=== PATIENT | male | born 1990 | race Caucasian/White ===

== ENCOUNTER 2018-07-30 11:43 | Emergency (ER) | payer OTHER ==
[2018-07-30 11:49] VITALS: BP 110/71; PULSE 85; TEMP 98.2; BMI 26.6
--- NOTE | 2018-07-30 11:54 | PDOC ---
History of Present Illness - General Chief Complaint: Sore Throat Stated Complaint: BUMP ON NECK Time Seen by Provider: 07/30/18 11:52 History Source: Patient Exam Limitations: No Limitations - History of Present Illness Initial Comments: 07/30/18 12:24 Patient came for evaluation of acute onset of sore throat pain yesterday afternoon with fevers and chills. States also woke up this morning with a left injected eye with yellowish drainage. No one else at home is sick. But has some friends at work who have been ill recently. Has taken no medication for relief Past History - Past Medical History Allergies/Adverse Reactions: Allergies Allergy/AdvReac Type Severity Reaction Status Date / Time No Known Drug Allergies Allergy Unknown Verified 11/28/11 13:05 POLLEN Allergy Unknown POLLEN Uncoded 11/28/11 13:04 Home Medications: Ambulatory Orders Albuterol Sulfate Inhaler - [Ventolin HFA Inhaler -] 2 inh IH Q4H #0 12/02/11 Azithromycin [Zithromax -] 250 mg PO UTDICT #6 tab 07/30/18 Tobramycin 0.3% Ophth Soln [Tobrex Ophthalmic Solution -] 2 drop OS QID #1 drops 07/30/18 Anemia: No Asthma: Yes (albuterol) Cancer: No Cardiac Disorders: No CVA: No COPD: No CHF: No Dementia: No Diabetes: No GI Disorders: No Disorders: No HTN: No Hypercholesterolemia: No Kidney Stones: No Liver Disease: No Seizures: Yes (4 y/o) Thyroid Disease: No - Reproductive History Testicular Surgery: No - Suicide/Smoking/Psychosocial Hx Smoking History: Current every day smoker Have you smoked in the past 12 months: Yes Number of Cigarettes Smoked Daily: 8 Information on smoking cessation initiated: No 'Breaking Loose' booklet given: 11/28/11 Hx Alcohol Use: Yes Drug/Substance Use Hx: Yes Substance Use Type: Marijuana Hx Substance Use Treatment: Yes Review of Systems - Review of Systems Able to Perform ROS?: Yes Is the patient limited [place] proficient: Yes Constitutional: Yes: Symptoms Reported, See HPI, Chills, Fever, Malaise HEENTM: Yes: Symptoms Reported, See HPI, Nose Congestion, Throat Pain Respiratory: Yes: Symptoms reported, See HPI. No: Cough Cardiac (ROS): No: Symptoms Reported Musculoskeletal: Yes: Symptoms Reported Integumentary: Yes: Symptoms Reported, See HPI Neurological: Yes: See HPI, Headache, Numbness. No: Symptoms reported All Other Systems: Reviewed and Negative *Physical Exam - Vital Signs Last Vital Signs Temp Pulse Resp BP Pulse Ox 98.2 F 85 18 110/71 100 07/30/18 11:46 07/30/18 11:46 07/30/18 11:46 07/30/18 11:46 07/30/18 11:46 - Physical Exam General Appearance: Yes: Nourished, Appropriately Dressed, Apparent Distress, Mild Distress HEENT: positive: LAI, Normal ENT Inspection, TMs Normal, Pharynx Normal, Pharyngeal Erythema, Tonsillar Erythema (beefy-red tonsils bilaterally,), Nasal Congestion, Rhinorrhea, Other (injected left conjunctiva with yellowish drainage noted. Visual and within normal limits). negative: Tonsillar Exudate Neck: positive: Tender, Supple, Lymphadenopathy (R), Lymphadenopathy (L) (or and large posterior cervical chains) Respiratory/Chest: positive: Lungs Clear, Normal Breath Sounds Musculoskeletal: positive: Normal Inspection. 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, Fully Oriented, Alert, Normal Mood/ Affect, Normal Response, Motor Strength 5/5 *DC/Admit/Observation/Transfer Diagnosis at time of Disposition: Pharyngitis Qualifiers: Pharyngitis/tonsillitis etiology: unspecified etiology Qualified Code(s): J02.9 - Acute pharyngitis, unspecified Conjunctivitis Qualifiers: Conjunctivitis type: acute Acute conjunctivitis type: unspecified Laterality: left Qualified Code(s): H10.32 - Unspecified acute conjunctivitis, left eye - Discharge Dispostion Disposition: HOME Condition at time of disposition: Stable Decision to Admit order: No - Prescriptions Prescriptions: Azithromycin [Zithromax -] 250 mg PO UTDICT #6 tab Tobramycin 0.3% Ophth Soln [Tobrex Ophthalmic Solution -] 2 drop OS QID #1 drops - Referrals - Patient Instructions Printed Discharge Instructions: DI for Pharyngitis/Tonsillopharyngitis -- Adult Additional Instructions: Rest, drink lots of fluids: Teas, water, soups Eat cold things: Ice cream, ice pops, ice chips Saltwater gargles Steamy showers/seem to face break up mucus Avoid contact with others until fevers and pain resolved Lots of handwashing and good hygiene, this is contagious Azithromycin as directed Tylenol or Motrin for fever and pain Followup with private physician in one to 2 days as needed if not improving Return to emergency department for worsened symptoms, fevers, dehydration Rest, avoid rubbing eyes Wash hands frequently as this is very contagious Wash hands, use eye drops as directed, wash hands after use Do not share eyedrops with other person to may become infected as this will infect them Tobramycin drops 2 drops to affected eye 4 times a day for 5 days Avoid contact with others until redness and discharge is gone from eyes. Followup with ophthalmology or private physician as needed - Post Discharge Activity Forms/Work/School Notes: Back to Work
== END 2018-07-30 12:29 | disposition home or self-care (01) ==
LOC: JERFT 11:43
DX: J02.9 Acute pharyngitis, unspecified (principal); H10.32 Unspecified acute conjunctivitis, left eye; Z86.69 Personal history of other diseases of the nervous system and sense organs; Z87.09 Personal history of other diseases of the respiratory system; F17.210 Nicotine dependence, cigarettes, uncomplicated
CPT/HCPCS: 99281-25

== ENCOUNTER 2019-06-20 15:55 | Emergency (ER) | payer OTHER ==
[2019-06-20 16:18] VITALS: BP 98/59; PULSE 88; TEMP 97.8; BMI 23.3
[2019-06-20] MEDS ORDERED: KETOROLAC TROMETHAMINE 60 MG/2 ML VIAL IM ONE (16:29)
--- NOTE | 2019-06-20 16:35 | PDOC ---
History of Present Illness - General Chief Complaint: Toothache Stated Complaint: TOOTH PAIN Time Seen by Provider: 06/20/19 16:20 History Source: Patient - History of Present Illness Timing/Duration: other Past History - Past Medical History Allergies/Adverse Reactions: Allergies Allergy/AdvReac Type Severity Reaction Status Date / Time No Known Drug Allergies Allergy Unknown Verified 06/20/19 16:18 POLLEN Allergy Unknown POLLEN Uncoded 06/20/19 16:18 Home Medications: Ambulatory Orders Albuterol Sulfate Inhaler - [Ventolin HFA Inhaler -] 2 inh IH Q4H #0 12/02/11 Azithromycin [Zithromax -] 250 mg PO UTDICT #6 tab 07/30/18 Tobramycin 0.3% Ophth Soln [Tobrex Ophthalmic Solution -] 2 drop OS QID #1 drops 07/30/18 Acetaminophen [Tylenol -] 1,000 mg PO Q6H #30 tablet 06/20/19 Acetaminophen [Tylenol -] 650 mg PO Q6H #30 tablet 06/20/19 Anemia: No Asthma: Yes (albuterol) Cancer: No Cardiac Disorders: No CVA: No COPD: No CHF: No Dementia: No Diabetes: No GI Disorders: No Disorders: No HTN: No Hypercholesterolemia: No Kidney Stones: No Liver Disease: No Seizures: Yes (4 y/o) Thyroid Disease: No - Reproductive History Testicular Surgery: No - Psycho Social/Smoking Cessation Hx Smoking History: Current every day smoker Have you smoked in the past 12 months: Yes Number of Cigarettes Smoked Daily: 8 Information on smoking cessation initiated: No 'Breaking Loose' booklet given: 11/28/11 Hx Alcohol Use: Yes Drug/Substance Use Hx: Yes Substance Use Type: Marijuana Hx Substance Use Treatment: Yes Review of Systems - Review of Systems Constitutional: No: Chills, Fever *Physical Exam - Vital Signs Last Vital Signs Temp Pulse Resp BP Pulse Ox 97.8 F 88 18 98/59 L 99 06/20/19 16:16 06/20/19 16:16 06/20/19 16:16 06/20/19 16:16 06/20/19 16:16 - Physical Exam General Appearance: Yes: Appropriately Dressed. No: Apparent Distress HEENT: positive: Normal Voice, Other (poor dentition w/ large dental caries, no swelling or discharge) Neck: positive: Supple. negative: Lymphadenopathy (R), Lymphadenopathy (L) Respiratory/Chest: negative: Respiratory Distress Integumentary: positive: Dry, Warm Neurologic: positive: Fully Oriented, Alert, Normal Mood/Affect Medical Decision Making - Medical Decision Making 06/20/19 16:32 29-year-old male, here with toothache to L lower tooth x several days. States he has multiple cavities and has dental appointment scheduled for tomorrow. Here for pain control. No facial pain swelling fever or chills see exam Dental pain Poor dentition w/ multiple large cavities on exam -dc w/ pain control -has appt w/ own dentist in am Discharge - Discharge Information Problems reviewed: Yes Clinical Impression/Diagnosis: Pain, dental Condition: Good Disposition: HOME - Additional Discharge Information Prescriptions: Acetaminophen [Tylenol -] 1,000 mg PO Q6H #30 tablet Acetaminophen [Tylenol -] 650 mg PO Q6H #30 tablet - Follow up/Referral - Patient Discharge Instructions Patient Printed Discharge Instructions: DI for Dental Pain Additional Instructions: Please follow-up with your dentist tomorrow at scheduled appointment - Post Discharge Activity
[2019-06-20] MEDS ORDERED: KETOROLAC TROMETHAMINE 60 MG/2 ML VIAL ONE (16:37)
== END 2019-06-20 16:49 | disposition home or self-care (01) ==
LOC: JERFT 15:55
PROC: 3E0233Z Introduction of Anti-inflammatory into Muscle, Percutaneous Approach (ICD-10-PCS; principal; 2019-06-20)
DX: K08.89 Other specified disorders of teeth and supporting structures (principal); Z91.09 Other allergy status, other than to drugs and biological substances
CPT/HCPCS: 96372; 99284-25

== ENCOUNTER 2020-06-16 00:48 | Emergency (ER) | payer OTHER ==
[2020-06-16 01:03] VITALS: BP 121/84; PULSE 80; TEMP 98.2; BMI 19.3
[2020-06-16 03:20] LABS: BASO % 0.7 % (0-2.0); EOS % 3.5 % (0-4.5); HEMATOCRIT 43.8 % (35.4-49); LYMPH % 21.4 % (8-40); MCH 31.1 pg (25.7-33.7); MCHC 34.4 g/dl (32.0-35.9); MEAN CELL VOLUME 90.5 fl (80-96); MEAN PLT VOLUME 7.7 fl (7.5-11.1); MONO % 8.9 % (3.8-10.2); NEUT % 65.5 % (42.8-82.8); PLATELET COUNT 178 K/MM3 (134-434); RBC 4.84 M/mm3 (4.00-5.60); RDW 13.4 % (11.9-15.9); WHITE BLOOD COUNT 9.6 K/mm3 (4.0-10.0)
[2020-06-16 03:28] LABS: INR 1.01 (0.83-1.09); PROTHROMBIN TIME (PATIENT) 12.4 SEC (9.7-13.0)
[2020-06-16 03:31] LABS: ACTIVATED PTT 31.1 SECONDS (25.2-36.5); POTASSIUM 3.7 mmol/L (3.5-5.1)
[2020-06-16 03:33] LABS: CALCIUM 8.8 mg/dL (8.5-10.1)
[2020-06-16 03:34] LABS: ALBUMIN 4.4 g/dl (3.4-5.0); BLOOD UREA NITROGEN 14.6 mg/dL (7-18)
[2020-06-16 03:39] LABS: BILIRUBIN,TOTAL 0.8 mg/dL (0.2-1); TOT PROT 7.3 g/dl (6.4-8.2)
[2020-06-16] MEDS ORDERED: AMOX TR/POT CLAV 875MG/125MG TABLETS (FP) PO ONE (05:22)
[2020-06-16] MEDS ORDERED: AMOX TR/POT CLAV 875MG/125MG TABLETS (FP) ONE (05:27)
== END 2020-06-16 05:42 | disposition home or self-care (01) ==
LOC: JER 00:48
DX: L03.211 Cellulitis of face (principal); L08.89 Other specified local infections of the skin and subcutaneous tissue
CPT/HCPCS: 36415; 70486-TC; 80053; 85025; 85610; 85730; 87040; 99284-25

== ENCOUNTER 2021-03-03 00:43 | Emergency (ER) | payer OTHER ==
[2021-03-03] MEDS ORDERED: BACITRACIN 15 GM TUBE TOPICAL OINTMENT ONE (01:06)
[2021-03-03 01:18] VITALS: BP 117/81; PULSE 86; TEMP 97.5; BMI 19.3
[2021-03-03] MEDS ORDERED: DIPHTH,PERTUSS(ACELL),TET 0.5 ML DISP.SYRIN IM ONE ×2 (01:21→01:29)
== END 2021-03-03 01:35 | disposition home or self-care (01) ==
LOC: JER 00:43
PROC: 3E0234Z Introduction of Serum, Toxoid and Vaccine into Muscle, Percutaneous Approach (ICD-10-PCS; principal; 2021-03-03)
DX: S81.852A Open bite, left lower leg, initial encounter (principal); W54.0XXA Bitten by dog, initial encounter; Y92.524 Gas station as the place of occurrence of the external cause
CPT/HCPCS: 90471; 90715; 99284-25

== ENCOUNTER 2024-02-16 15:56 | Emergency (ER) | payer OTHER ==
[2024-02-16 16:32] VITALS: BP 106/68; PULSE 90; RESP 18; TEMP 97.4
[2024-02-16] MEDS: LIDOCAINE HCL 1%, 10 MG/ML (50 mL VIAL) INF ONE (18:47)
== END 2024-02-16 19:07 | disposition home or self-care (01) ==
LOC: JERFT 15:56
PROC: 0HQ2XZZ Repair Right Ear Skin, External Approach (ICD-10-PCS; principal; 2024-02-16)
DX: H60.01 Abscess of right external ear (principal)
CPT/HCPCS: 10060; 99283-25